=== PATIENT | female | born 1975 | race Caucasian/White ===

== ENCOUNTER → 2017-06-25 11:09 | Outpatient (CLI) | payer BC, SELFPAY ==
[2017-06-25 11:29] LABS: Basophils % 0.4 % (0.1-2.0); Eosinophils # 0.1 K/mm3 (0.0-0.4); Eosinophils % 1.7 % (0.1-12.0); Hematocrit 42.5 % (37.0-47.0); Hemoglobin 13.7 g/dL (12.2-16.2); Lymphocytes % 35.3 K/mm3 (10-50); Mean Corpuscular HGB Conc 32.2 g/dL (31.8-35.4); Mean Corpuscular Hemoglobin 29.5 pg (27.0-31.2); Mean Corpuscular Volume 91.6 fl (81-99); Mean Platelet Volume 7.6 fl (7.4-10.4); Monocytes # 0.5 K/mm3 (0.1-1.0); Monocytes % 5.5 % (1.7-9.3); Neutrophils # 4.9 K/mm3 (1.8-7.8); Platelet Count 289 K/mm3 (142-424); Red Blood Count 4.64 M/mm3 (4.20-5.40); Red Cell Distribution Width 12.7 % (11.5-17.5); White Blood Count 8.5 K/mm3 (4.8-10.8)
[2017-06-25 11:53] LABS: Alanine Aminotransferase 17 U/L (12-78); Albumin Level 3.7 gm/dL (3.4-5.0); Albumin/Globulin Ratio 0.9 (1.1-1.8); Alkaline Phosphatase 87 U/L (46-116); Anion Gap 10.9 mEq/L (5-15); Aspartate Amino Transferase 8 U/L (15-37); Bilirubin,Total 0.5 mg/dL (0.2-1.0); Blood Urea Nitrogen 12 mg/dL (7-18); Carbon Dioxide 29 mmol/L (21.0-32.0); Chloride 106 mmol/L (98-107); Estimated Glomerular Filt Rate 92 ml/min (>60); Free T4 (Free Thyroxine) 1.39 ng/dl (0.76-1.46); GFR (African American) 111 ML/MIN (>60); Globulin 3.9 gm/dl (1.3-3.2); Glucose 95 mg/dL (74-106); Potassium 3.9 mmoL/L (3.5-5.1); Sodium 142 mmol/L (136-145); Thyroid Stimulating Hormone 0.32 uIU/ml (0.358-3.740); Total Protein,Serum 7.6 gm/dL (6.4-8.2)
[2017-06-26 18:51] LABS: Thyroid Peroxidase Antibodies 12 IU/mL (0-34)
[2017-06-28 06:24] LABS: Thyroglobulin Level <1.0 IU/mL (0.0-0.9)
== END ==
PROVIDERS: PCP Internal Medicine Adolescent Medicine; Visit Provider Nurse Practitioner Family
DX: E04.1 Nontoxic single thyroid nodule (principal); R59.0 Localized enlarged lymph nodes
CPT/HCPCS: 36415; 80053; 84439; 84443; 85025; 86376; 86800

== ENCOUNTER → 2017-10-07 14:30 | Outpatient (CLI) | payer BC, SELFPAY ==
--- NOTE | 2017-10-07 | US_ITS ---
US thyroid HISTORY: Follow-up left-sided thyroid nodule ORDERING PHYSICIAN: Serena Santiago PATIENT AGE: 41 years Comparison: None FINDINGS: Prior right thyroidectomy. The isthmus has an unremarkable appearance. The left lobe measures 3.8 x 1.6 x 2.3 cm. There is a complex nodule in upper pole measuring 2 x 1.6 cm. Previously the nodule in the upper pole measured 2.3 x 1.8 cm. There are small septations within the cystic component which is smaller on today's exam There is a solid-appearing nodule in the lower pole at 1.7 x 1.6 cm not significant changed. IMPRESSION: 1. Decrease in size of complex cystic nodule in the upper pole with no change in the solid nodule in the lower pole 2. Prior right thyroidectomy
--- NOTE | 2017-10-07 14:35 | MM_ITS ---
MM Dig screening mamm BI w/CAD CAD Screening COMPARISON: None, this is baseline INDICATION: There is a history of breast cancer patient's paternal aunt diagnosed in her 50s TECHNIQUE: Standard CC and MLO images were obtained. R2 CAD reviewed. FINDINGS: Moderate heterogenic fibroglandular densities are seen in the upper outer quadrants of both breasts. The findings are bilateral and symmetrical. There is no suspicious lesion and there are no suspicious microcalcifications. IMPRESSION: Moderate breast density with no suspicious lesion seen BI-RADS Category: 1 Negative RECOMMENDED FOLLOW-UP: 1YR - 1 YEAR FOLLOW-UP (A letter has been sent to the patient regarding results of the study.)
== END ==
PROVIDERS: PCP Internal Medicine Adolescent Medicine; Visit Provider Nurse Practitioner Family
DX: Z12.31 Encounter for screening mammogram for malignant neoplasm of breast (principal); E04.1 Nontoxic single thyroid nodule
CPT/HCPCS: 76536; 77067

== ENCOUNTER → 2018-04-14 10:28 | Outpatient (CLI) | payer BC, SELFPAY ==
--- NOTE | 2018-04-14 10:32 | XR_ITS ---
EXAM: XR lumbar spine min 4V HISTORY: ITS.REASON: LOW BACK PAIN,RADICULAR LEG PAIN ORDERING PHYSICIAN: Pasquale Howell MD PATIENT AGE: 42 years COMPARISON: None FINDINGS: Normal alignment. No fracture or dislocation. No lytic or blastic change. No significant degenerative change. The disc spaces are preserved. There is no pars defect. There is an IUD seen in the upper central portion of the pelvis. There are tiny phleboliths middle lower pelvis. The SI joints are normal. IMPRESSION: Normal lumbar spine
== END ==
PROVIDERS: PCP Internal Medicine Adolescent Medicine; Visit Provider Internal Medicine Adolescent Medicine
DX: M54.5 Low back pain (principal); M54.10 Radiculopathy, site unspecified
CPT/HCPCS: 72110

== ENCOUNTER → 2018-04-20 10:18 | Outpatient (CLI) | payer BC, SELFPAY ==
--- NOTE | 2018-04-20 10:26 | MR_ITS ---
MR lumbar spine wo con, MR 3-d myelogram/MRCP HISTORY: Low back pain X 1 week. [place] pop in back 1 week ago. Pain L4-L5 and L5-S1 disc spaces are unremarkable. There is mild facet and ligamentum flavum hypertrophy at L3-L4 L4-5 and L5-S1 extends around to back and down RT leg. Numbness and tingling RT leg. ITS.REASON: LOW BACK PAIN ORDERING PHYSICIAN: Pasquale Howell MD PATIENT AGE: 42 years Comparison: X-RAY 04/14/18 TECHNIQUE: Standard multiplanar multiecho sequences are performed without contrast. 3-D MIP and myelographic images are also rendered and reviewed FINDINGS: There is normal alignment. No fracture or dislocation is evident. The spinal cord ends at the L1 level. L1-L2, L2-L3, L3-L4, and L4-L5 disc spaces have an unremarkable appearance. There is mild facet and ligamentum flavum hypertrophy from L3 to S1. There is mild bilateral foraminal narrowing at L4-L5 no significant lateral recess narrowing apparent. No disc herniation or canal stenosis. Small annular fissure involving the right paracentral aspect of L5-S1 with minimal bulging disc toward the right at that level. Incidental note is made of a 16 mm T1 and T2 hyperintense rounded area in the right aspect of the L4 vertebral body showing punctate areas of decrease signal consistent with a hemangioma. IMPRESSION: 1. No disc herniation or canal stenosis. 2. Mild facet ligamentum flavum hypertrophic changes with mild bilateral foraminal narrowing at L4-5 3. Small annular fissure on the right with minimal bulging discs toward the right at L5-S1. 4. Hemangioma of L4 vertebral body
== END ==
PROVIDERS: PCP Internal Medicine Adolescent Medicine; Visit Provider Internal Medicine Adolescent Medicine
DX: M54.5 Low back pain (principal)
CPT/HCPCS: 72148; 76376

== ENCOUNTER → 2018-05-01 13:09 | Outpatient (POV) | payer BC, SELFPAY ==
[2018-05-01 13:24] VITALS: BP 146/88; PULSE 87; RESP 18; O2SAT 99
--- NOTE | 2018-05-02 09:03 | HMH.PMCON ---
Assessment and Plan (1) Degenerative disc disease Current visit: Yes Status: Chronic Qualifiers: Spinal region: lumbar Qualified Code(s): M51.36 - Other intervertebral disc degeneration, lumbar region Category: Medical - Assessment and plan all Dx Assessment and Plan for all problems:: We will schedule L4-L5 lumbar epidural steroid injection for the patient she is not on any anticoagulation-therapy. I will follow-up with her after this injection. I do believe it would be beneficial given the amount of conservative therapy and her current symptomology. Dr. Orozco has reviewed this note and agrees with this plan of care. This note was dictated using voice recognition software and may contain errors or omissions HPI - Data of Consult Consult date: 05/02/18 Requesting Physician: Estella Cooper APRN Primary Care Provider: Pasquale Howell MD - Consult Narrative Reason for consult: Pain, leg pain History of present illness: Ms. Fallon is a 42 year old female presents today for consultation in regards to her low back pain and leg pain. Patient had a sudden an acute onset of her pain back 3 weeks ago. Patient is obviously uncomfortable rating her pain today a 5 out of 10. It is having difficulty standing and putting weight on her right foot. Patient was given steroids and anti-inflammatories which did help some however she is still having quite a bit of pain. She is currently in physical therapy and is continuing home stretching. Patient states that all activity increases pain while rest and elevation of the legs decreases pain. She states that the pain radiates down her right leg all the way into her toes. She does have a recent MRI showing degenerative disc disease with bulging disks. CC: Estella Cooper APRN [facility] History I have reviewed the patient's past medical history: Yes Medical History: Reports:: Palpitations Denies:: Cancer, Diabetes Mellitus Type 1, Diabetes Mellitus Type 2, MRSA Other Medical History: Reports: Hypothyroidism Laterality Cases: Bilateral: Tonsillectomy Other Surgeries: Yes: Sinus Surgery, Thyroidectomy Amputation: No - *Social History Smoking Status: Never smoker Alcohol Intake: never Occupational Status: other Housing: house Household Members: spouse Travel in the last 8 weeks: None - Psychiatric History Expresses thoughts of harming self/others: None Suicide Plan Description: No Plan *Family Hx:: Unable to obtain Review of Systems - Review of Systems ROS General: no recent weight change, no fever, no sleep disturbances Respiratory: no cough, no shortness of air, no recurring pulmonary infections Cardiovascular/Peripheral Vascular: No chest pain, No palpitations, no edema, no shortness of breath. Gastrointestinal: no incontinence, normal bowel movements reported Genitourinary: no incontinence Musculoskeletal: Back pain, leg pain Psychiatric: normal mood/ affect Neurological: [denies weakness in extremities], [denies balance issues] Meds Home Medications Medication Instructions Recorded Confirmed Type Hydrocodone/Ibuprofen 7.5 mg PO TID PRN 05/01/18 05/01/18 History [Hydrocodone-Ibuprofen 7.5-200] Levothyroxine Sodium 150 mcg PO DAILY 05/01/18 05/01/18 History [Levothyroxine 150mcg (0.15mg) Tab] Allergies Allergy/AdvReac Type Severity Reaction Status Date / Time Sulfamethoxazole Allergy Severe ANAPHYLACTIC Uncoded 03/29/17 14:55 REACTION Codeine Allergy Intermediate NA-NAUSEA/V Uncoded 03/29/17 14:55 OMITING From CLARITIN Allergy Intermediate I-RASH Uncoded 03/29/17 14:55 CELERY Allergy Unknown CONGESTION Uncoded 03/29/17 14:55 From MILK (FOOD/DRUG) Allergy Unknown CONGESTION Uncoded 03/29/17 14:55 LATEX Allergy Unknown SENSITIVIT Uncoded 03/29/17 14:55 Y PEACHES Allergy Unknown CONGESTION Uncoded 03/29/17 14:55 PEAS Allergy Unknown CONGESTION Uncoded 03/29/17 14:55 Objective Vital signs: P
--- NOTE | 2018-05-02 09:06 | P.CONS_ITS ---
Assessment and Plan (1) Degenerative disc disease Current visit: Yes Status: Chronic Qualifiers: Spinal region: lumbar Qualified Code(s): M51.36 - Other intervertebral disc degeneration, lumbar region Category: Medical - Assessment and plan all Dx Assessment and Plan for all problems:: We will schedule L4-L5 lumbar epidural steroid injection for the patient she is not on any anticoagulation-therapy. I will follow-up with her after this injection. I do believe it would be beneficial given the amount of conservative therapy and her current symptomology. Dr. Orozco has reviewed this note and agrees with this plan of care. This note was dictated using voice recognition software and may contain errors or omissions HPI - Data of Consult Consult date: 05/02/18 Requesting Physician: Estella Cooper APRN Primary Care Provider: Pasquale Howell MD - Consult Narrative Reason for consult: Pain, leg pain History of present illness: Ms. Fallon is a 42 year old female presents today for consultation in regards to her low back pain and leg pain. Patient had a sudden an acute onset of her pain back 3 weeks ago. Patient is obviously uncomfortable rating her pain today a 5 out of 10. It is having difficulty standing and putting weight on her right foot. Patient was given steroids and anti-inflammatories which did help some however she is still having quite a bit of pain. She is currently in physical therapy and is continuing home stretching. Patient states that all activity increases pain while rest and elevation of the legs decreases pain. She states that the pain radiates down her right leg all the way into her toes. She does have a recent MRI showing degenerative disc disease with bulging disks. CC: Estella Cooper APRN [facility] History I have reviewed the patient's past medical history: Yes Medical History: Reports:: Palpitations Denies:: Cancer, Diabetes Mellitus Type 1, Diabetes Mellitus Type 2, MRSA Other Medical History: Reports: Hypothyroidism Laterality Cases: Bilateral: Tonsillectomy Other Surgeries: Yes: Sinus Surgery, Thyroidectomy Amputation: No - *Social History Smoking Status: Never smoker Alcohol Intake: never Occupational Status: other Housing: house Household Members: spouse Travel in the last 8 weeks: None - Psychiatric History Expresses thoughts of harming self/others: None Suicide Plan Description: No Plan *Family Hx:: Unable to obtain Review of Systems - Review of Systems ROS General: no recent weight change, no fever, no sleep disturbances Respiratory: no cough, no shortness of air, no recurring pulmonary infections Cardiovascular/Peripheral Vascular: No chest pain, No palpitations, no edema, no shortness of breath. Gastrointestinal: no incontinence, normal bowel movements reported Genitourinary: no incontinence Musculoskeletal: Back pain, leg pain Psychiatric: normal mood/ affect Neurological: [denies weakness in extremities], [denies balance issues] Meds Home Medications Medication Instructions Recorded Confirmed Type Hydrocodone/Ibuprofen 7.5 mg PO TID PRN 05/01/18 05/01/18 History [Hydrocodone-Ibuprofen 7.5-200] Levothyroxine Sodium 150 mcg PO DAILY 05/01/18 05/01/18 History [Levothyroxine 150mcg (0.15mg) Tab] Allergies Allergy/AdvReac Type Severity Reaction Status Date / Time Sulfamethoxazole Allergy Sev
== END ==
PROVIDERS: PCP Internal Medicine Adolescent Medicine; Visit Provider Clinical Nurse Specialist Family Health
DX: M51.36 Other intervertebral disc degeneration, lumbar region (principal)
CPT/HCPCS: 99203

== ENCOUNTER → 2018-06-15 10:07 | Outpatient (CLI) | payer BC, SELFPAY ==
--- NOTE | 2018-06-15 10:10 | CT_ITS ---
CT abdomen pelvis wo con INDICATION: Right-sided abdominal pain 1 week. Nausea. HEMATURIA, RT FLANK PAIN ORDERING PHYSICIAN: Pasquale Howell MD PATIENT AGE: 42 years COMPARISON: No previous CT abdomen study. There is a CT lumbar spine which partially includes kidneys April 2017 . TECHNIQUE: No oral nor IV contrast utilized Axial images obtained with sagittal and coronal reformats. All CT scans at the facility use one or more dose reduction, viz: automated exposure control, ma/kV adjustment per patient size (including targeted exams where dose is matched to indication, i.e. head), or iterative reconstruction technique. FINDINGS: Lung bases. Clear. Heart normal size. Abdomen/pelvis. Lack of oral & IV contrast decreases sensitivity. Liver, spleen, pancreas, adrenals unremarkable. Gallbladder. Probable sludge difficult to exclude noncalcified stone. Common duct normal diameter. TRACT... Kidneys appear normal in size with no hydronephrosis nor mass. ... LEFT KIDNEY: Note 2 .6 mm nonobstructing calculus midportion left kidney.: ... RIGHT KIDNEY:.. No hydronephrosis. Nonobstructive calculus upper pole right kidney measures 4.1 mm height X 3.8 mm diameter. Right ureter is slightly more generous than the left but is not dilated identify no no discrete calculi along the course of right ureter. Phleboliths pelvic basin. Favor liver looks adjacent to the distal right ureter believe account for calcifications here and doubt distal ureteral calculus since is no ureteral dilatation. . PELVIS: urinary bladder appears satisfactory. Uterus normal size.. Anteverted. IUD in place- satisfactory position. No adnexal masses. Ovaries appear normal in size each measuring up to nearly 3 cm with small follicles likely present bilaterally. No significant fluid in cul-de-sac. GI TRACT. The appendix is normal. No right lower quadrant inflammatory changes or findings. Small bowel appears normal. Unremarkable. Stomach unremarkable. Moderate stool at the right colon, & hepatic flexure. Mild/Moderate stool descending colon... Areas of borderline wall thickening most likely reflecting lack of distention descending colon. Upper normal wall thickness thickening at the rectum most likely reflecting lack of distention is well. Suggestion of a few scattered early diverticula forming and sigmoid & descending colon. Other some scattered small nodes throughout the mesentery. No significant mesenteric nor retroperitoneal adenopathy. Small thin fat-containing umbilical hernia. No bowel loops. Bones intact. No remarkable findings at L-spine. Or hips Some mild irregularity at the right pubis likely from multigravida pelvis or prior trauma. IMPRESSION...... 1. No acute findings abdomen nor pelvis No current urinary tract obstruction evident 2. Nonobstructive punctate renal calculi bilaterally. Most generous intrarenal calculus upper pole right kidney measuring 4 mm in size 3. Normal size uterus, anteverted with IUD in place. Ovaries normal in size. No significant free fluid in cul-de-sac 4. Appendix normal. Terminal ileum unremarkable. Moderate stool right colon. Slight irregularity at the right pubis likely from multigravida pelvis or old trauma
== END ==
PROVIDERS: PCP Internal Medicine Adolescent Medicine; Visit Provider Internal Medicine Adolescent Medicine
DX: R10.9 Unspecified abdominal pain (principal); R31.9 Hematuria, unspecified
CPT/HCPCS: 74176

== ENCOUNTER → 2018-07-04 08:10 | Outpatient (CLI) | payer BC, SELFPAY ==
--- NOTE | 2018-07-04 08:30 | US_ITS ---
US gallbladder HISTORY: Right upper quadrant pain ITS.REASON: RUQ PAIN ORDERING PHYSICIAN: Pasquale Howell MD PATIENT AGE: 42 years Comparison: None FINDINGS: PANCREAS: Unremarkable. No obvious mass or abnormal fluid collection. No ductal dilatation LIVER: No focal liver lesions demonstrated. Homogeneous echogenicity. No intrahepatic biliary ductal dilatation evident RIGHT KIDNEY: Unremarkable. Normal size and echogenicity. No hydronephrosis. The is a small hyperechoic focus in the upper pole the right kidney consistent with a renal stone GALLBLADDER: No gallstones, gallbladder wall thickening, pericholecystic fluid, or biliary dilatation. There is a small polyp noted in the upper aspect of the body of the gallbladder measuring 4 mm. IMPRESSION: Gallbladder polyp Hyperechoic area in the upper pole the right kidney consistent with a small calculus
== END ==
PROVIDERS: PCP Internal Medicine Adolescent Medicine; Visit Provider Internal Medicine Adolescent Medicine
DX: R10.11 Right upper quadrant pain (principal)
CPT/HCPCS: 76705

== ENCOUNTER 2018-07-18 09:30 | Outpatient (RCR) | payer BC, SELFPAY ==
--- NOTE | 2018-04-27 10:26 | HMH.PTOPEV ---
PT Outpatient Evaluation Rehab PT Outpatient Evaluation Start: 04/27/18 09:09 Freq: Status: Active Protocol: Document 04/27/18 09:51 CALEBLELO (Rec: 04/27/18 10:26 BRENNAN [id number]) Electronically Signed By Omid Rea, PT 04/27/18 09:51 Outpatient Therapy Subjective History Subjective History Patient is a 42 year old female presenting to outpatient PT with reports of acute low back pain starting approx 2.5 weeks ago. Pain starting as she was transferring from sit to stand off of a couch when she felt a pop. Pt reports RLE radicular pain with numbness/ tingling/burning. Most recent diagnostics indicate lumbar spine ligamentum flavum hypertrophy, L4/5 facet hypertrophy and L5/S1 disc bulge right. Pt reports that she was prescribed a round of oral steroids last week that have provided no relief. Comorbidities include hx of thyroidectomy and resultant hypothyroidism. Chief Complaint Pain Stiff Paresthesia Weakness Symptom Type Ache Throb Sharp Dull Stabbing Burning Numbness Tingling Shooting Symptoms Relieved By Rest/Positioning Ice Symptoms Aggravated By Supine Sitting Standing Bending/Stooping Physical Activity Twisting Walking Lifting Prior Functional Limitations None Current Functional Limitations Reaching Lifting Housework Dressing Driving Sleeping Standing
--- NOTE | 2018-06-01 10:16 | HMH.RHREAS ---
Rehab Reassessment Rehab OP Re-assessment Start: 06/01/18 09:21 Freq: Status: Active Protocol: Document 06/01/18 09:22 BRENNAN (Rec: 06/01/18 10:15 BRENNAN [id number]) Electronically Signed By Omid Rea, PT 06/01/18 09:22 Rehab Re-assessment Subjective Subjective Pt reports 40% improvement since start of care. Objective Objective Notes AROM: flx 78; ext 12; SBr 22; SBl 18 MMT: L/R out of 5: hip flx 4+/ 4+; HS 5/5; Quad 4+/4+; Ant tib 4/5; Gastroc 4/5 Neuro: dec sensation S1 dermatome; DTR dec L achilles 1+ Pain: 3/10 currently; 5/10 at worst over past week Special test: + slump L; + distraction Assessment Progress Assessment Slower Than Expected Assessment Notes Pt is progressing slowly with Rx. She reports significant pain relief in the lower back with traction/dry needling with little relief of numbness /tingling in posterior thigh. Radicular symptoms have migrated from L foot to L posterior thigh since beginning of Rx. Significant reduction in symptoms since change in gabapentin prescription. Rx has consisted of BLE stretching, extension protocol, modalities for pain relief/anti-inflammatory purposes and core stabilization. Patient goals met STG's Goals Not Met LTG's Revised Goals NA Plan Plan Continue with current POC. Frequency of Therapy 2x/week Duration of therapy 4 weeks Time and Billing Re-Eval Time 15 Re-Eval Billing Units 1 PHYSICIAN CERTIFICATION: I certify the specified therapy services for Crystal Viola Courts are required, authorized, and reviewed every 30 days.
--- NOTE | 2018-07-18 10:01 | HMH.RHREAS ---
Rehab Reassessment Rehab OP Re-assessment Start: 06/01/18 09:21 Freq: Status: Active Protocol: Document 07/18/18 09:16 BRENNAN (Rec: 07/18/18 09:59 BRENNAN [id number]) Electronically Signed By Omid Rea, PT 07/18/18 09:16 Rehab Re-assessment Subjective Subjective Pt reports persisent radicular symptoms to the back of the R knee. I haven't been able to do my exercises or take my Gabapentin because I've been sick. Objective Objective Notes AROM: flx 62 inc radic, ext WNL; SBr 20; SBl 22 MMT: WNL except for EHL 4+/5 Neuro: DTR's WNL; dec sensation S1 dermatome. Special test: positice slump test R Pain: 5/10 current Assessment Progress Assessment Slower Than Expected Assessment Notes Pt was progressing very well until she was diagnosed with multiple kidney stones and gall stones. Today is the first time in PT in almost 3 weeks. She still responds well to ext protocol and traction. Good response to dry needling of R posterior hip mm and stretching as well. She continues to report inc radicular symptom with prolonged sitting and bending. This results in functional limitations with occupational, recreational and household activities. Patient goals met STG's Goals Not Met LTGs Revised Goals NA Plan Plan Cont with current POC. Frequency of Therapy 2x/week Duration of therapy 4 weeks Time and Billing Re-Eval Time 15 Re-Eval Billing Units 1 PHYSICIAN CERTIFICATION: I certify the specified therapy services for Crystal Viola Courts are required, authorized, and reviewed every 30 days.
== END 2018-07-18 09:35 | disposition home or self-care (01) ==
LOC: PT 09:30
PROVIDERS: Visit Provider Internal Medicine Adolescent Medicine
DX: M54.31 Sciatica, right side (principal)
CPT/HCPCS: 97010; 97012; 97014; 97033; 97035; 97110; 97140; 97163; 97164; G0283

== ENCOUNTER → 2018-07-18 10:05 | Outpatient (CLI) | payer BC, SELFPAY ==
--- NOTE | 2018-07-18 10:10 | NM_ITS ---
NM hepatobiliary wo pharm HISTORY: Right upper quadrant pain with nausea, abnormal gallbladder ultrasound ITS.REASON: RUQ PAIN ORDERING PHYSICIAN: Pasquale Howell MD PATIENT AGE: 42 years COMPARISON: None DOSE: 8.07 MCI TC choletec 1.8 MCG cck Inj into LT antecubital FOSSA FINDINGS: Homogeneous activity is present within the hepatic parenchyma. Activity is present in the gallbladder by 10 minutes. Activity is present in the small bowel by 20 minutes. The gallbladder ejection fraction is calculated to be 54% which is within normal limits. The patient did report pain and nausea with CCK infusion. IMPRESSION: Unremarkable hepatobiliary scan and gallbladder ejection fraction. No evidence of common or cystic duct obstruction with normal gallbladder ejection fraction
--- NOTE | 2018-07-18 14:24 | HMH.ITSHM ---
Current Home Medications as stated by this patient Charla Rod Courts or union representative. []SYNTHROID DUEXOUS GABAPENTIN VITAMINS
== END ==
PROVIDERS: PCP Internal Medicine Adolescent Medicine; Visit Provider Internal Medicine Adolescent Medicine
DX: R10.11 Right upper quadrant pain (principal)
CPT/HCPCS: 78226; A9537; J2805

== ENCOUNTER → 2018-07-25 09:19 | Outpatient (CLI) | payer BC, SELFPAY ==
[2018-07-25 09:42] LABS: Basophils % 0.5 % (0.1-2.0); Eosinophils # 0.2 K/mm3 (0.0-0.4); Eosinophils % 2.2 % (0.1-12.0); Hematocrit 39.6 % (37.0-47.0); Hemoglobin 13.3 g/dL (12.2-16.2); Lymphocytes # 3.1 K/mm3 (0.7-4.5); Lymphocytes % 42.7 % (10-50); Mean Corpuscular HGB Conc 33.5 g/dL (31.8-35.4); Mean Corpuscular Hemoglobin 30.2 pg (27.0-31.2); Mean Corpuscular Volume 90.1 fl (81-99); Mean Platelet Volume 7.8 fl (7.4-10.4); Monocytes # 0.3 K/mm3 (0.1-1.0); Monocytes % 4.7 % (1.7-9.3); Neutrophils # 3.6 K/mm3 (1.8-7.8); Neutrophils % 49.9 % (37.0-80.0); Platelet Count 280 K/mm3 (142-424); Red Blood Count 4.39 M/mm3 (4.20-5.40); White Blood Count 7.2 K/mm3 (4.8-10.8)
[2018-07-25 10:31] LABS: Alanine Aminotransferase 19 U/L (12-78); Albumin Level 3.8 gm/dL (3.4-5.0); Albumin/Globulin Ratio 1.2 (1.1-1.8); Alkaline Phosphatase 74 U/L (46-116); Anion Gap 12.3 mEq/L (5-15); Aspartate Amino Transferase 7 U/L (15-37); Bilirubin,Total 0.4 mg/dL (0.2-1.0); Blood Urea Nitrogen 11 mg/dL (7-18); Calcium 8.9 mg/dL (8.5-10.1); Carbon Dioxide 28 mmol/L (21.0-32.0); Chloride 107 mmol/L (98-107); Chol/HDL Ratio 3.2 (1-3.5); Cholesterol 182 mg/dL (140-200); Estimated Glomerular Filt Rate 91 ml/min (>60); Free Thyroxine Index 2.3 ug/dL (5.93-13.13); GFR (African American) 111 ML/MIN (>60); Globulin 3.2 gm/dl (1.3-3.2); Glucose 104 mg/dL (74-106); HDL Cholesterol 57 mg/dL (29-89); LDL Cholesterol 116 mg/dL (0-130); Potassium 4.3 mmoL/L (3.5-5.1); Sodium 143 mmol/L (136-145); Thyroid Stimulating Hormone 1.37 uIU/ml (0.358-3.740); Triglycerides 43 mg/dL (30-200); Triiodothryronine (T3) Uptake 33 % (31-39); VLDL Cholesterol 9 mg/dL (0-40)
[2018-07-25 11:02] LABS: HCG Qualitative, Serum Negative (Negative)
== END ==
PROVIDERS: Surgery; Visit Provider Internal Medicine Adolescent Medicine
DX: Z00.00 Encounter for general adult medical examination without abnormal findings (principal); K82.4 Cholesterolosis of gallbladder; E04.1 Nontoxic single thyroid nodule
CPT/HCPCS: 36415; 80053; 80061; 84436; 84443; 84479; 84703; 85025

== ENCOUNTER → 2020-01-14 14:01 | Outpatient (CLI) | payer BC, SELFPAY ==
--- NOTE | 2020-01-14 14:10 | CT_ITS ---
PROCEDURE: CT ABDOMEN PELVIS WO CON CLINICAL INDICATION: HEMATURIA Left flank pain, hematuria COMPARISON: CT ABDPELWO CT abdomen pelvis wo con from 06/15/2018 TECHNIQUE: Axial images obtained with sagittal and coronal reformats. All CT scans at the facility use one or more dose reduction, viz: automated exposure control, ma/kV adjustment per patient size (including targeted exams where dose is matched to indication, i.e. head), or iterative reconstruction technique. FINDINGS: LOWER THORAX: No acute finding ABDOMEN & PELVIS: Prior cholecystectomy. The spleen, adrenal glands, and pancreas have an unremarkable appearance. No evidence appendicitis. There are small bilateral renal calculi measuring up to 4 mm in the upper pole on the right and 3 mm in the mid polar region on the left. There is mild left hydronephrosis and hydroureter. There is a 4 mm stone at the left ureterovesical junction causing left-sided obstructive uropathy. There is mild stranding of the periureteral fat in the left peripelvic renal fat with a sphenoid small nodes in the retroperitoneum. No intestinal obstruction or free air. There is a small umbilical hernia which contains fat. There is some stranding of the subcutaneous fat in the left lower quadrant which is nonspecific. There is a intrauterine device present. There is a small left ovarian cyst measuring 2.4 cm. No acute bony anomalies. IMPRESSION: 4 mm left ureterovesical junction stone causing left-sided obstructive uropathy with bilateral nephrolithiasis and mild stranding of the left peripelvic and periureteral fat which could be due to superimposed inflammation/infection. Other nonacute findings as described above. Dictated by: Roddy Oliveros MD 01/14/2020 16:38 Roddy Oliveros MD in [place] 01/14/2020 16:40
== END ==
PROVIDERS: PCP Internal Medicine Adolescent Medicine; Visit Provider Internal Medicine Adolescent Medicine
DX: R31.0 Gross hematuria (principal)
CPT/HCPCS: 74176

== ENCOUNTER 2020-01-17 00:08 | Emergency (ER) | payer BC, SELFPAY ==
[2020-01-17 00:25] VITALS: BP 154/81; PULSE 99; RESP 16; TEMP 36.9; O2SAT 97; BMI 40.7
[2020-01-17 00:47] LABS: Basophils # 0.1 K/mm3 (0-0.2); Basophils % 0.5 % (0.1-2.0); Eosinophils # 0.1 K/mm3 (0.0-0.4); Hematocrit 40.2 % (37.0-47.0); Hemoglobin 13.2 g/dL (12.2-16.2); Lymphocytes # 2.5 K/mm3 (0.7-4.5); Mean Corpuscular HGB Conc 32.7 g/dL (31.8-35.4); Mean Corpuscular Hemoglobin 29.3 pg (27.0-31.2); Mean Corpuscular Volume 89.7 fl (81-99); Mean Platelet Volume 7.1 fl (7.4-10.4); Monocytes # 0.9 K/mm3 (0.1-1.0); Monocytes % 7.8 % (1.7-9.3); Neutrophils # 7.5 K/mm3 (1.8-7.8); Neutrophils % 67.8 % (37.0-80.0); Platelet Count 350 K/mm3 (142-424); Red Blood Count 4.48 M/mm3 (4.20-5.40); Red Cell Distribution Width 13.1 % (11.5-17.5)
[2020-01-17 00:57] LABS: Anion Gap 11.3 mEq/L (5-15); Blood Urea Nitrogen 10 mg/dl (7-17); Calcium 9.3 mg/dl (8.4-10.2); Carbon Dioxide 29 mmol/L (22.0-30.0); Chloride 102 mmol/L (98-107); Creatinine Clearance Estimated 104 mL/min (50-200); Estimated Glomerular Filt Rate 49 ml/min (>60); GFR (African American) 59 ML/MIN (>60); Glucose 116 mg/dl (74-100); Potassium 3.3 mmoL/L (3.5-5.1); Sodium 139 mmol/L (136-145)
--- NOTE | 2020-01-17 01:37 | HMH.EDGENADL ---
ED Disposition Clinical Impression: Renal colic on left side Disposition: Home, Self-Care Condition on Discharge: Good Instructions: DI for Kidney Stones Additional Instructions: call pcp this am Referrals: Pasquale Howell MD [Primary Care Provider] - - Critical Care Critical Care Time: No Attestation: On 01/17/20, the high probability of a clinically significant, sudden or life threatening deterioration of the following system(s) required my full and direct attention, intervention and personal management. The time I documented below is in addition to time spent performing reported procedures but includes the following listed in this critical care notation. Medical Decision Making - Medical Records Medical records reviewed: Yes: I reviewed the patient's medical records. - Qamar Inquiry Pt receiving controlled substance: No Vital Signs: 01/17/20 00:25 Temperature 98.5 F Temperature Source Oral Pulse Rate [Right] 99 H Respiratory Rate 16 Blood Pressure [Right Arm] 154/81 H Blood Pressure Mean [Right Arm] 105 02 Sat by Pulse Oximetry 97 Oxygen Delivery Method Room Air - Lab Data Lab results reviewed: Yes: I reviewed the patient's lab results. Lab Results 01/17/20 00:20: WBC 11.0 H, RBC 4.48, Hgb 13.2, Hct 40.2, MCV 89.7, MCH 29.3, MCHC 32.7, RDW 13.1, Plt Count 350, MPV 7.1 L, Neut % (Auto) 67.8, Lymph % (Auto) 23.0, Jerome % (Auto) 7.8, Eos % (Auto) 1.0, Baso % (Auto) 0.5, Neut # (Auto) 7.5, Lymph # (Auto) 2.5, Jerome # (Auto) 0.9, Eos # (Auto) 0.1, Baso # (Auto) 0.1 01/17/20 00:20: Sodium 139, Potassium 3.3 L, Chloride 102, Carbon Dioxide 29, Anion Gap 11.3, BUN 10, Creatinine 1.20 H, Estimated Creat Clear 104, Estimated GFR 49 L, Est GFR ( Amer) 59, Glucose 116 H, Calcium 9.3 Result diagrams: 01/17/20 00:20 01/17/20 00:20 Orders (Tests/Meds): ED MEDICATIONS Discontinued Medications Generic Name Dose Route Start Last Admin Trade Name Freq PRN Reason Stop Dose Admin Hydromorphone HCl 1 mg 01/17/20 01:37 01/17/20 01:41 Hydromorphone 2mg/Ml Syringe IV 01/17/20 01:38 1 mg ONCE ONE Administration General Adult HPI - General Chief complaint: PAIN Stated complaint: kidney stone swollen legs trouble urinating Time Seen by Provider: 01/17/20 01:00 Mode of Arrival: Ambulatory Source of Information: Patient, Parent(s), Medical Record Limitations: No Limitations Description of Symptoms (Recalled from ER Triage Doc. by RN): Pt currently seeing Dr Velasquez for left renal calculi, scheduled for stone removal on tuesday, here tonight for pain comtrol - History of Present Illness HPI narrative: hx of kidney stone with lt flank pain Onset (ago): day(s) Location: left Radiation: flank Severity: moderate Associated symptoms: denies other symptoms Treatments prior to arrival: none - Related Data Home Medications Medication Instructions Recorded Confirmed Levothyroxine Sodium 150 mcg PO DAILY 05/01/18 01/16/20 [Levothyroxine 150mcg (0.15mg) Tab] gabapentin 300 mg tablet 300 mg PO TID 07/25/18 01/16/20 ibuprofen 800 mg-famotidine 26.6 1 tab PO TID 07/25/18 01/16/20 mg tablet cyclobenzaprine 10 mg tablet 10 mg PO BID tab 01/15/20 01/16/20 gabapentin 300 mg capsule 300 mg PO TID 01/15/20 01/16/20 promethazine 25 mg tablet 25 mg PO Q6H PRN 01/15/20 01/16/20 Fluconazole 150 mg PO Q3D 01/16/20 01/16/20 Terconazole 1 appful VAGINAL QHS 01/16/20 01/16/20 Allergies Allergy/AdvReac Type Severity Reaction Status Date / Time Sulfa (Sulfonamide Allergy Severe Anaphylaxis Verified 01/15/20 14:00 Antibiotics) loratadine [From Claritin] Allergy Intermediate Rash Verified 01/15/20 14:00 celery Allergy Unknown Congested Verified 01/15/20 14:00 codeine Allergy Unknown Nausea/Vomi Verified 01/15/20 14:00 ting latex Allergy Unknown SENSITIVIT Verified 01/15/20 14:00 Y milk Allergy Unknown Congested Verified 01/15/20 14:00 peach Allergy Unknown Congested Verif
[2020-01-17 02:04] VITALS: BP 146/92; PULSE 88; RESP 14; TEMP 36.9; O2SAT 97
== END 2020-01-17 02:14 | disposition home or self-care (01) ==
PROVIDERS: Emergency Provider Emergency Medicine; PCP Internal Medicine Adolescent Medicine
DX: N20.1 Calculus of ureter (principal); K21.9 Gastro-esophageal reflux disease without esophagitis; I10 Essential (primary) hypertension; Z87.442 Personal history of urinary calculi; E03.9 Hypothyroidism, unspecified; Z79.899 Other long term (current) drug therapy; Z88.2 Allergy status to sulfonamides
CPT/HCPCS: 80048; 85025; 96374; 99282

== ENCOUNTER → 2020-01-17 12:16 | Outpatient (CLI) | payer BC, SELFPAY ==
[2020-01-17 14:16] LABS: Coronavirus 19 IgG Antibody Negative (Negative); Coronavirus 19 IgM Antibody Negative (Negative)
== END ==
PROVIDERS: Visit Provider Urology
DX: N20.1 Calculus of ureter (principal); Z01.89 Encounter for other specified special examinations
CPT/HCPCS: 36415; 86328

== ENCOUNTER 2020-01-18 08:16 | Day surgery (SDC) | payer BC, SELFPAY ==
[2020-01-16 10:34] VITALS: BMI 40.9
[2020-01-18] VITALS (11 sets, daily range): BP systolic 136–181; BP diastolic 75–108; PULSE 74–107; RESP 17–18; TEMP 36.2–43; O2SAT 92–98
[2020-01-18 09:04] LABS: Urine Pregnancy, HCG Qual. Negative (Negative)
--- NOTE | 2020-01-18 11:53 | XR_ITS ---
PROCEDURE: XR ABDOMEN MIN 2V CLINICAL INDICATION: LEFT URETEROSCOPY WITH STONE EXTRACTION WITH STENT PLACED COMPARISON: CT CT ABDOMEN PELVIS WO CON from 01/14/2020 FINDINGS: Fluoroscopy time: 1 minutes and 54 seconds graph C-arm is utilized for left ureteral stone extraction and stent placement. Contrast was injected into the left ureter showing mild ureteral dilatation. Stent was placed with the proximal aspect overlying the region of the left upper quadrant and distal aspect in the region of the urinary bladder. IMPRESSION: Status post stent placement with stone extraction on the left Dictated by: Roddy Oliveros MD 01/18/2020 17:55 Roddy Oliveros MD in OV 01/18/2020 17:55
--- NOTE | 2020-01-18 11:58 | HMH.ANESCL ---
[facility] Anesthesia Checklist - Structural Data Admitted From: Home Planned Operative Procedure/s: l ereterscopy Consent for Planned Operative Procedure(s) Verified: Yes - Additional verifications Anesthesia Reactions: No Hx Blood Transfusions: No Blood Transfusion Reaction: No - Airway Assessment C-Spine Mobility Assessed: Yes TMJ Mobility Assessed: Yes Dentition: Good Dentition - Neurological Assessment Level of Consciousness: Awake, Alert, Appropriate - Anesthesia Plan Anesthesia Risk discussed: Yes Anesthesia Plan: Verified ASA Class: II Anesthesia Type: General [facility] History I have reviewed the patient's past medical history: Yes Medical History: Reports:: Gastroesophageal Reflux Disease(GERD), Hypertension, Lung Disease, Kidney Stones, Palpitations Denies:: Cancer, Diabetes Mellitus Type 1, Diabetes Mellitus Type 2, Internal Pacemaker, MRSA, Seizures *Have you ever received a pneumonia vaccine?: No *Have you received a flu vaccine this season?: No Other Medical History: Reports: Hypothyroidism, Thyroid Disease, Other. Denies: Blood Transfusion Reaction Anesthesia experience/problems:: none Laterality Cases: Bilateral: Tonsillectomy Other Surgeries: Yes: No Previous Surgery, Cholecystectomy, EGD, Sinus Surgery, Thyroidectomy, Other. No: Pacemaker Amputation: No Fractures: Yes (LEFT HEEL) - *Social History Last grade of school completed: Some college Smoking Status: Never smoker Alcohol Intake: never Substance Use Type: denies use *Occupational Status:: unemployed Housing: house Household Members: spouse, family *Travel in the last 8 weeks: None Family Hx:: Cancer, Diabetes, Hypertension
--- NOTE | 2020-01-18 12:42 | HMH.OPNOTE ---
Date of procedure: 01/18/20 Pre-op Diagnosis:: 4 mm distal left ureteral stone Post-op Diagnosis:: Ureteral edema and inflammation Procedure performed:: Cystoscopy with left ureteroscopy, left retrograde pyelogram and left ureteral stent placement Surgeon:: Nura Velasquez MD DIRECTOR OF STRATEGIC COMMUNICATIONS:: Brennan Bloom Anesthesia: GETA Estimated blood loss (mL): 0 Clinical Note:: 44-year-old white female with recent left renal colic noted to have a 4 mm distal left ureteral stone with mild hydro-on CT scan 1 week ago. She has continued to have left flank pain and presents for urologic management. Operative findings:: Cystoscopy revealed significant inflammation and edema of the left trigone. Ureteroscopy revealed stenotic left ureteral orifice with inflammation and edema of the left ureter, retrograde pyelogram revealed dilation of the ureter throughout most of the segment but only mild hydronephrosis. No evidence of stone was noted in the ureter however there was a very narrow segment in the mid ureter that we could not traverse. Operative note:: Patient taken to the operating room after informed consent was obtained. She was afebrile and her preoperative white count was normal at 11.9. She was placed on the operating table in the supine position and general anesthesia administered. Preoperative antibiotics and sequential compression devices placed. She was then placed into the dorsal lithotomy position and prepped and draped in the standard surgical fashion. 22 Ukrainian cystoscope passed into the urethra and into the bladder without difficulty. The bladder was examined in a systematic fashion. There was evidence of significant edema and inflammation of the left trigone. Right trigone was normal. A 5 Ukrainian ureteral catheter was passed into the left ureteral orifice is very difficult to pass a wire through the ureteral catheter and proximally. There was certainly resistance in the distal ureter of passage of the wire. A zip wire was replaced as the sensor wire would not pass the were able to pass the zip wire by the distal obstruction. Under fluoroscopy the wire passed into the left renal pelvis. The ureteral catheter was passed over the wire with some resistance and we then removed the zip wire and placed the 0.035 sensor guidewire as it is easier to work with. The ureteral catheter was then removed. There was evidence of some brownish debris from the ureteral orifice there was no evidence of pus. We then removed the cystoscope and passed the semirigid ureteroscope into the bladder. We could not traverse the ureteral orifice as it was too narrow so the ureteroscope was removed and the left distal ureter dilated with the 5 x 14 UroMax balloon dilator. Ureter was dilated for 2 minutes under fluoroscopic guidance. The balloon was then deflated and removed. Our semirigid ureteroscope was passed back into the bladder neck and passed into the left ureteral orifice now without difficulty. There was a lot of edema of the mucosa distally. There is no evidence of's stone however. The past was helped up to the mid ureter where a very narrow segment was encountered and we could not pass the scope by. His unlikely that the stone was able to pass by this segment. I then removed the ureteroscope and passed a 5 Ukrainian ureteral catheter over the guidewire and the guidewire removed. Contrast injected in a retrograde fashion and while pulling the catheter downwards I did verify that the ureteral catheter was then the true lumen of the ureter and not submucosal. Ureter did show dilation along its course but only mild hydro-was noted. A definite stone was not visualized on the fluoroscopy. A guidewire passed back into the ureteral catheter in the left renal pelvis. The ureteral catheter removed and our ureteroscope was repassed into the left ureter and again no evidence of a stone was noted I passed proximally back up to the stricture but again could not traverse the narrowed
--- NOTE | 2020-01-18 14:07 | P.PN_ITS ---
[facility] Anesthesia Record Part II Discharge Time: 12:25 Destination: [facility] PACU nurse assessment reviewed?: Yes Patient Condition:: Good Anesthesia Complications:: None Swallowing reflex intact?: Yes Cyanosis?: No Blood Pressure: 156/75 Pulse Rate: 94 Temperature: 97.2 F Mental Status: Alert & Oriented Pain level:: 5 Nausea and/or vomitting:: None Intake, IV Amount: 1,200
== END 2020-01-18 13:35 | disposition home or self-care (01) ==
LOC: OR 08:17
PROVIDERS: PCP Internal Medicine Adolescent Medicine; Visit Provider Urology
PROC: (CPT 52352; principal; 2020-01-18 10:00)
DX: N20.1 Calculus of ureter (principal); R60.9 Edema, unspecified; K21.9 Gastro-esophageal reflux disease without esophagitis; I10 Essential (primary) hypertension; R00.2 Palpitations; Z87.442 Personal history of urinary calculi; E03.9 Hypothyroidism, unspecified; Z90.89 Acquired absence of other organs; Z83.3 Family history of diabetes mellitus; Z82.49 Family history of ischemic heart disease and other diseases of the circulatory system; Z80.9 Family history of malignant neoplasm, unspecified; Z88.2 Allergy status to sulfonamides
CPT/HCPCS: 52351; 74019; 76000; 81025; 96374; C1769; C2617; J2405; Q9958

== ENCOUNTER → 2020-02-25 11:00 | Outpatient (CLI) | payer BC, SELFPAY ==
[2020-02-25 12:12] LABS: Chloride 107 mmol/L (98-107)
[2020-02-25 12:13] LABS: Potassium 4.5 mmoL/L (3.5-5.1); Sodium 141 mmol/L (136-145)
[2020-02-25 12:15] LABS: Alanine Aminotransferase 44 U/L (12-78); Alkaline Phosphatase 90 U/L (38-126); Anion Gap 12.5 mEq/L (5-15); Aspartate Amino Transferase 49 U/L (14-36); Basophils % 0.5 % (0.1-2.0); Bilirubin,Total 0.4 mg/dl (0.2-1.3); Blood Urea Nitrogen 11 mg/dl (7-17); Carbon Dioxide 26 mmol/L (22.0-30.0); Eosinophils # 0.2 K/mm3 (0.0-0.4); Eosinophils % 1.8 % (0.1-12.0); Estimated Glomerular Filt Rate 90 ml/min (>60); GFR (African American) 109 ML/MIN (>60); Hematocrit 45.1 % (37.0-47.0); Hemoglobin 14.7 g/dL (12.2-16.2); Lymphocytes # 3.4 K/mm3 (0.7-4.5); Lymphocytes % 40.1 % (10-50); Mean Corpuscular HGB Conc 32.5 g/dL (31.8-35.4); Mean Corpuscular Hemoglobin 29.8 pg (27.0-31.2); Mean Corpuscular Volume 91.7 fl (81-99); Mean Platelet Volume 7.7 fl (7.4-10.4); Monocytes # 0.4 K/mm3 (0.1-1.0); Monocytes % 4.1 % (1.7-9.3); Neutrophils # 4.6 K/mm3 (1.8-7.8); Neutrophils % 53.6 % (37.0-80.0); Platelet Count 351 K/mm3 (142-424); Red Blood Count 4.92 M/mm3 (4.20-5.40); Red Cell Distribution Width 13.9 % (11.5-17.5); Triglycerides 129 mg/dl (30-150); VLDL Cholesterol 26 mg/dL (0-40); White Blood Count 8.6 K/mm3 (4.8-10.8)
[2020-02-25 12:16] LABS: Albumin Level 4.4 g/dl (3.5-5.0); Albumin/Globulin Ratio 1.5 (1.1-1.8); Calcium 9.4 mg/dl (8.4-10.2); Chol/HDL Ratio 3.4 (1-3.5); Cholesterol 216 mg/dl (140-200); Globulin 2.9 g/dL (1.3-3.2); Glucose 103 mg/dl (74-100); HDL Cholesterol 64 mg/dl (40-60); Magnesium 2.3 mg/dl (1.6-2.3); Total Protein,Serum 7.3 g/dl (6.3-8.2)
[2020-02-25 12:44] LABS: Direct LDL Cholesterol 128.62 mg/dL (100-129)
[2020-02-25 12:46] LABS: Thyroid Stimulating Hormone 0.25 uIU/mL (0.465-4.68)
== END ==
PROVIDERS: Visit Provider Internal Medicine Adolescent Medicine
DX: E78.5 Hyperlipidemia, unspecified (principal); E03.9 Hypothyroidism, unspecified; R60.9 Edema, unspecified
CPT/HCPCS: 36415; 80053; 80061; 83735; 84443; 85025

== ENCOUNTER 2021-02-18 09:39 | Outpatient (CLI) | payer BC, SELFPAY ==
[2021-02-18] VITALS (7 sets, daily range): BP systolic 126–158; BP diastolic 77–95; PULSE 80–93; RESP 16–18; TEMP 37.3–37.6; O2SAT 96–100
== END 2021-02-18 13:46 | disposition home or self-care (01) ==
LOC: COVID.OUT 09:41
PROVIDERS: PCP Internal Medicine Adolescent Medicine; Visit Provider Internal Medicine Adolescent Medicine
DX: U07.1 COVID-19 (principal); Z23 Encounter for immunization
CPT/HCPCS: 96365

== ENCOUNTER → 2021-09-17 16:48 | Outpatient (CLI) | payer BC, SELFPAY | PROVIDERS: Visit Provider Nurse Practitioner Obstetrics & Gynecology | DX: N39.0 Urinary tract infection, site not specified (principal); B96.20 Unspecified Escherichia coli [E. coli] as the cause of diseases classified elsewhere | CPT/HCPCS: 87086; 87088; 87186 ==

== ENCOUNTER 2023-04-19 10:32 | Outpatient (CLI) | payer BC, SELFPAY ==
--- NOTE | 2023-04-19 10:37 | XR_ITS ---
FINAL REPORT CLINICAL HISTORY: foot/heel pain FINDINGS: Left foot Three views were obtained. There is no acute fracture or dislocation. There is mild hallux valgus deformity. There are mild degenerative changes. No soft tissue abnormality is identified. IMPRESSION: No acute process. Reviewed, Interpreted and Dictated by Hilton Rojo III, MD Transcribed by Petra Jeffrey Authenticated and [facility]
--- NOTE | 2023-04-19 10:37 | XR_ITS ---
FINAL REPORT CLINICAL HISTORY: foot/heel pain FINDINGS: Left foot Three views were obtained. There is no acute fracture or dislocation. There is mild hallux valgus deformity. There are mild degenerative changes. No soft tissue abnormality is identified. IMPRESSION: No acute process. Reviewed, Interpreted and Dictated by Hilton Rojo III, MD Transcribed by Petra Jeffrey Authenticated and . [facility]
== END 2023-04-19 23:59 ==
LOC: RAD 10:33
PROVIDERS: PCP Internal Medicine Adolescent Medicine; Visit Provider Internal Medicine Adolescent Medicine
DX: M79.671 Pain in right foot (principal); M79.672 Pain in left foot
CPT/HCPCS: 73630

== ENCOUNTER 2023-06-23 14:38 | Outpatient (CLI) | payer BC, SELFPAY ==
--- NOTE | 2023-06-23 14:39 | MR_ITS ---
FINAL REPORT CLINICAL HISTORY: PLANTAR foot pain. SYMPTOMS FOR MONTHS FINDINGS: Multiplanar MR imaging of the right foot was performed without contrast. The bony structures are intact without evidence of fracture, bone bruise or marrow edema. The flexor and extensor tendons are intact. No ligamentous injury is identified. The musculature is intact. There is posterior plantar fasciitis without evidence of tear. No soft tissue mass or cyst is identified. IMPRESSION: No acute bony abnormality identified. Posterior plantar fasciitis without evidence of tear. Reviewed, Interpreted and Dictated by Hilton Rojo III, MD Transcribed by Syeda Matute Authenticated and . [facility]
== END 2023-06-23 23:59 ==
LOC: RAD 14:39
PROVIDERS: PCP Internal Medicine Adolescent Medicine; Visit Provider Podiatrist
DX: M76.821 Posterior tibial tendinitis, right leg (principal); M72.2 Plantar fascial fibromatosis
CPT/HCPCS: 73718

== ENCOUNTER 2023-08-09 16:00 | Outpatient (RCR) | payer BC, SELFPAY ==
--- NOTE | 2023-07-13 16:35 | HMH.PTOPEV ---
PT Outpatient Evaluation Rehab PT Outpatient Evaluation Start: 07/13/23 14:45 Freq: Status: Active Protocol: Document 07/13/23 14:45 BRENNAN (Rec: 07/13/23 16:35 BRENNAN [id number]) E-signed By Omid Rea, PT Outpatient Therapy Subjective History Subjective History Patient is a 47 year old female presenting to outpatient PT with reports chronic B foot pain R>L. R foot pain is the patients main concern at this time. Symptoms of insidious onset starting approx 1 year ago. Observation indicates B pes planus. Most recent imaging indicates posterior plantar fasciitis. Comorbidities include hx of HTN and hypothyroidism. New diagnosis of cancer in past 12 No months? Chief Complaint Pain,Stiff Symptom Type Ache,Sharp,Burning Symptoms Relieved By Rest/Positioning,Ice,OTC Meds Symptoms Aggravated By Standing,Physical Activity, Walking Prior Functional Limitations None Current Functional Limitations Housework,Standing,Walking, Stairs,Balance Symptom Description Constant but Variable Level of pain today (0-10) 4 Pain scale - at its best (0-10) 3 Pain scale - at its worst (0-10) 9 Ankle/Foot Eval Gait Observation General Gait Pattern Observation No Deviations/Normal Assistive Device Ambulation Assistive Device None Palpation Tenderness right Ankle/Foot Palpation Findings Tenderness Ankle/Foot Palpation Overall Comment med/lat malleolus, calcaneal tubercle 3/4 ROM Ankle/Foot Dorsiflexion w/Knee Extended -6 Active Range Motion (degrees) Ankle/Foot Plantar Flexion Active Range WNL of Motion (degrees) Ankle/Foot Eversion Active Range of 11 Motion (degrees) Ankle/Foot Inversion Active Range of 22 Motion (degrees) Ankle/Foot ROM Limitations Soft Tissue Tightness Great Toe ROM Reason Not Measured Within Functional Limits MMT Ankle Dorsiflexion Strength Grade 4 Good Ankle Plantarflexion Strength Grade 4 Good Foot Eversion Strength Grade 4 Good Foot Inversion Strength Grade 4 Good Special Tests Ankle Anterior Drawer Test Negative Right Talar Tilt Test Negative Right Foot Interdigital Neuroma Test Negative Right Lower Extremity Functional Index Activities Today, do you or would you have any difficulty at all with: a.Any of your usual work, housework or Quite a bit of difficulty school activities b. Your usual hobbies, recreational or Quite a bit of difficulty sporting activities c. Getting into or out of the bath Moderate difficulty d. Walking between rooms Moderate difficulty e. Putting on your shoes or socks Moderate difficulty f. Squatting No difficulty g. Lifting an object, like a bag of Moderate difficulty groceries from the floor h. Performing light activities around Quite a bit of difficulty your home i. Performing heavy activities around Quite a bit of difficulty your home j. Getting into or out of a car No difficulty k. Walking 2 blocks Extreme difficulty or unable to perform activity l. Walking a mile Extreme difficulty or unable to perform activity m. Going up or down 10 stairs (about 1 Extreme difficulty or unable flight of stairs) to perform activity n. Standing for 1 hour Extreme difficulty or unable to perform activity o. Sitting for 1 hour No difficulty p. Running on even ground Extreme difficulty or unable to perform activity q. Running on uneven ground Extreme difficulty or unable to perform activity r. Making sharp turns while running fast Extreme difficulty or unable to perform activity s. Hopping Extreme difficulty or unable to perform activity t. Rolling over in bed No difficulty LEFI Score Lower Extremity Functional Index Score 28 Outpatient Therapy Assessment Impairments Problems/Impairmments Palpation Tenderness,Impaired Range of Motion,Impaired Strength,Impaired Gait Pattern ,Impaired Walking,Impaired Standing,Impaired Household Care,Impaired Stair Climbing, Impaired Incline Stepping, Impaired Stepping on Uneven Surface,Impaired Recreational Activities,Impaired Balance, Subjective C/O Pain Prognosis Rehab Potential Good Clinical Impression Consistent with Diagnosis Yes Short Term Goals Number of Weeks 2 Decrease Subjective C/O Pain Yes: 5/10 at worst Patient to be Ind w/ HEP Yes Halfway Goals Number of Weeks 4-6 Decreased Palpation Tenderness Yes: 1/4 Increase Range of Motion Yes: WNL all planes Increase Strength Yes: 5/5 Increase Ability to Walk Yes: 30 min without difficulty Improve Ability For Household Care Yes Improve Ability to Climb Stairs Yes: 1 flight up/down without difficulty Decrease Subjective C/O Pain Yes: 2/10 at worst Outpatient Therapy Plan of Care Treatment Plan May Include Therapeutic Exercise Including Home Yes Exercise Program Manual Therapy Techniques Yes Neuromuscular Re-education Yes Therapeutic Activities to Return to Yes Previous Functional/Work Level Gait Training Yes ADL/Self Care Education Yes Dry Needling Yes Thermal Modalities Yes Electrical Stimulation Yes Ultrasound/Phonophoresis Yes Iontophoresis Yes Orthotics/Bracing/Splinting Yes Vasopneumatic Compression Pump Yes Massage Yes Eval/Re-Eval Yes Aquatic Therapy Yes Frequency Times per week 2 Duration Number of Weeks 4-6 Addendums This patient is a candidate for social No or vocational rehab? Patient/Guardian verbally acknowledges Yes understanding of treatment program and consents to further treatment? Patient/Guardian verbally acknowledges Yes understanding of diagnosis, prognosis and goals for treatment? Eval Complexity PT Charges 31024 - Moderate Complexity Shoulder/Elbow Eval Shoulder Objective Measurements Elbow Objective Measurements PHYSICIAN CERTIFICATION: I certify the specified therapy services for Charla Rod Courts are required, authorized, and reviewed every 30 days.
== END 2023-08-09 17:00 | disposition home or self-care (01) ==
LOC: PT 16:00
PROVIDERS: Visit Provider Podiatrist
DX: M79.671 Pain in right foot (principal); M72.2 Plantar fascial fibromatosis; G89.29 Other chronic pain; M62.9 Disorder of muscle, unspecified
CPT/HCPCS: 97010; 97014; 97110; 97163; 97530; G0283